=== PATIENT | female | born 1960 | race African-American/Black ===

== ENCOUNTER 2016-12-29 09:11 | Outpatient (CLI) | payer OTHER, MEDICARE | END 2016-12-29 09:22 | LOC: D.MAMMO 09:11 | DX: Z12.31 Encounter for screening mammogram for malignant neoplasm of breast (principal) ==

== ENCOUNTER → 2017-12-02 13:19 | Outpatient (CLI) | payer MEDICARE, OTHER | END | disposition home or self-care (01) | LOC: D.US 11-30 11:00 | DX: R10.2 Pelvic and perineal pain (principal) ==